=== PATIENT | female | born 1950 | race Caucasian/White ===

== ENCOUNTER 2017-09-28 06:42 | Day surgery (SDC) | payer MEDICARE, OTHER ==
[2017-09-23 16:25] VITALS: BMI 29.2
[~2017-09-28 06:42] MED LIST: LACTATED RINGERS 1,000 ML IV SCH
[2017-09-28] MEDS ORDERED: LACTATED RINGERS 1,000 ML IV ONE (07:04)
[2017-09-28 07:16] VITALS: TEMP 97.6
[2017-09-28] MEDS ORDERED: PROPOFOL 10 MG/ML 20 ML VIAL IV ONE (07:36)
--- NOTE | 2017-09-28 07:59 | P.PCN ---
Date of Procedure: 09/28/17 Procedure(s) Performed: BRIEF HISTORY: Patient is a 66-year-old pleasant white female scheduled for an elective colonoscopy as a part of screening for colorectal neoplasia. PROCEDURE PERFORMED: Colonoscopy. PREOPERATIVE DIAGNOSIS: Screening for colon cancer. IV sedation per Anesthesia. PROCEDURE: After informed consent was obtained, the patient, was brought into the endoscopy unit. IV sedation was administered by Anesthesia under continuous monitoring. Digital rectal examination was normal. Initially the Olympus CF- 160 flexible video colonoscope was then inserted in the rectum, gradually advanced into the cecum without any difficulty. Careful examination was performed as the scope was gradually being withdrawn. Ileocecal valve and the appendiceal orifice were visualized and appeared normal. Prep was excellent. Mucosa of the cecum, ascending colon, transverse colon, descending colon, sigmoid colon, and rectum appeared normal. Retroflexion was performed in the rectum and small internal hemorrhoids were seen. The patient tolerated the procedure well. IMPRESSION: Normal-appearing colon from rectum to cecum with no evidence of colorectal neoplasia. Small internal hemorrhoids. RECOMMENDATIONS: Findings of this examination were discussed with the patient as well as a family. She was advised to have a repeat screening colonoscopy in 10 years.
[2017-09-28 08:29] VITALS: BP 139/72; PULSE 90; RESP 18
== END 2017-09-28 09:22 | disposition home or self-care (01) ==
LOC: ORWHC2ENDO 06:42
PROVIDERS: ATTEND Internal Medicine Gastroenterology
DX: Z12.11 Encounter for screening for malignant neoplasm of colon (principal); K64.8 Other hemorrhoids; I10 Essential (primary) hypertension; E78.5 Hyperlipidemia, unspecified; J44.9 Chronic obstructive pulmonary disease, unspecified; F17.210 Nicotine dependence, cigarettes, uncomplicated; M19.90 Unspecified osteoarthritis, unspecified site; Z79.82 Long term (current) use of aspirin; Z79.899 Other long term (current) drug therapy; I73.9 Peripheral vascular disease, unspecified; Z88.1 Allergy status to other antibiotic agents
CPT/HCPCS: J2704; G0121; 45378

== ENCOUNTER 2019-06-09 11:59 | Emergency (ER) | payer MEDICARE, OTHER ==
[2019-06-09 13:51] LABS: Basophils % (A) 0 %; Eosinophils # (A) 0.1 k/uL (0-0.7); Eosinophils % (A) 1 %; HCT 45.5 % (34.0-46.0); HGB 14.7 gm/dL (11.4-16.0); Lymphocytes # (A) 0.9 k/uL (1.0-4.8); Lymphocytes % (A) 11 %; MCH 32.6 pg (25.0-35.0); MCHC 32.3 g/dL (31.0-37.0); MCV 100.7 fL (80.0-100.0); Macrocytosis Slight; Mean Platelet Volume 9.7; Monocytes # (A) 0.2 k/uL (0-1.0); Monocytes % (A) 3 %; Neutrophils % (A) 84 %; Platelet Count 168 k/uL (150-450); RBC 4.52 m/uL (3.80-5.40); RDW 14.4 % (11.5-15.5); WBC 8.3 k/uL (3.8-10.6)
[2019-06-09 14:04] LABS: ALT 20 U/L (4-34); African American GFR (CKD) >90 (>60 ml/min/1.73 sqM); Albumin 4.8 g/dL (3.5-5.0); Anion Gap 12 mmol/L; Blood Urea Nitrogen 17 mg/dL (7-17); Calcium 9.8 mg/dL (8.4-10.2); Carbon Dioxide 27 mmol/L (22-30); Chloride 101 mmol/L (98-107); Glucose 112 mg/dL (74-99); Non-African American GFR(CKD) >90 (>60 ml/min/1.73 sqM); Sodium 140 mmol/L (137-145); Total Bilirubin 0.7 mg/dL (0.2-1.3); Total Protein 8.4 g/dL (6.3-8.2)
[2019-06-09 14:05] LABS: AST 31 U/L (14-36); Alkaline Phosphatase 77 U/L (38-126); Potassium 4.4 mmol/L (3.5-5.1)
--- NOTE | 2019-06-09 14:16 | CT ---
EXAMINATION TYPE: CT brain wo con DATE OF EXAM: 06/09/2019 COMPARISON: None HISTORY: 68-year-old female elevated BP, vertigo TECHNIQUE: Examination was done in axial plane without intravenous contrast. Coronal and sagittal r econstructions performed. CT DLP: 1017.4 mGycm Automated exposure control for dose reduction was used. FINDINGS: There is no evidence of acute intracranial hemorrhage, acute ischemic changes, mass, mass-effect, or extra-axial fluid collection. There is no effacement of cerebral sulci or basal subarachnoid cister ns. There is no hydrocephalus. There is no midline shift. Swan-white matter distinction is preserv ed. Air-fluid level within the left maxillary sinus, probably fluid in the right sphenoid sinus. Mastoid air cells are well pneumatized. Atherosclerotic calcifications within the carotid siphons. Mild generalized supratentorial volume los s. IMPRESSION: No acute intracranial abnormality seen. Correlate for acute left maxillary and acute right sphenoid sinusitis.
[2019-06-09] MEDS ORDERED: amLODIPine 5 MG TAB PO STA (14:53)
--- NOTE | 2019-06-09 14:58 | ED ---
General Adult HPI - General Chief complaint: Recheck/Abnormal Lab/Rx Stated complaint: high BP Time Seen by Provider: 06/09/19 12:30 Source: patient Mode of arrival: ambulatory Limitations: no limitations - History of Present Illness Initial comments: The patient is a 68-year-old female past history of hypertension and abdominal aortic aneurysm with repair who presents to the emergency department with reported hypertension. She states that it has been going on for the past 6 months. She will be seen in her cardiology office and was told that her blood pressure runs high. It is normally around 160 systolic. The patient states over the past few days she has felt foggy with a slight headache. Also admits to feeling slightly tremulous. Because of her symptoms she has been taking her blood pressure more frequently. She has noted that it is been extremely high, 190 systolic. She denies any visual changes or unilateral numbness or weakness. No chest pain or shortness of breath. No ripping or tearing sensation to her back. She denies any weakness in her extremities. She does take atenolol 25 mg once daily. She was placed on this after her abdominal aortic aneurysm repair. States this medication has not been adjusted in several years. Denies any additional symptoms to include nausea, vomiting, abdominal or back pain. There are no other alleviating, precipitating or modifying factors - Related Data Home Medications Medication Instructions Recorded Confirmed Atenolol 25 mg PO HS 02/28/16 09/28/17 Atorvastatin [Lipitor] 40 mg PO HS 02/28/16 09/28/17 Acetaminophen [Tylenol Extra 1,000 mg PO DAILY PRN 09/23/17 09/28/17 Strength] Aspirin 325 mg PO HS 09/23/17 09/28/17 Cholecalciferol [Vitamin D3] 1,000 unit PO HS 09/23/17 09/28/17 Clobetasol Propionate [Temovate 1 applic TOPICAL DAILY PRN 09/23/17 09/28/17 0.05% Cream] Fluocinonide [Lidex .05%] 1 applic TOPICAL DAILY PRN 09/23/17 09/28/17 Folic Acid 1 mg PO HS 09/23/17 09/28/17 L.acidoph,Paracasei, B.lactis 1 each PO HS 09/23/17 09/28/17 [Probiotic] Latanoprost Ophth [Xalatan 0.005%] 1 drops RIGHT EYE HS 09/23/17 09/28/17 Methotrexate Sodium [Methotrexate] 12.5 mg PO TU 09/23/17 09/28/17 Mometasone Furoate [Asmanex Hfa] 1 puff INHALATION HS 09/23/17 09/28/17 Previous Rx's Medication Instructions Recorded amLODIPine [Norvasc] 5 mg PO DAILY #14 tab 06/09/19 Allergies Allergy/AdvReac Type Severity Reaction Status Date / Time erythromycin base Allergy Swelling Verified 06/09/19 12:35 of Tongue & throat. Review of Systems ROS Statement: Those systems with pertinent positive or pertinent negative responses have been documented in the HPI. ROS Other: All systems not noted in ROS Statement are negative. Past Medical History Past Medical History: COPD, Hyperlipidemia, Hypertension, Rheumatoid Arthritis (RA), Skin Disorder Additional Past Medical History / Comment(s): PSORIASIS, STATES ? BEGINNING OF LUPUS, MUSCLE SPASMS, CHRONIC CONSTIPATION., STATES BLOOD TYPE IS O NEGATIVE WITH AN ANTIBODY. History of Any Multi-Drug Resistant Organisms: None Reported Past Surgical History: Cholecystectomy Additional Past Surgical History / Comment(s): AAA repair, D & C, CATARACTS Past Anesthesia/Blood Transfusion Reactions: No Reported Reaction, Motion Sickness Past Psychological History: No Psychological Hx Reported Smoking Status: Current every day smoker Past Alcohol Use History: None Reported Past Drug Use History: None Reported - Past Family History Mother Family Medical History: No Reported History General Exam Limitations: no limitations General appearance: alert, in no apparent distress Head exam: Present: atraumatic, normocephalic, normal inspection Eye exam: Present: normal appearance, PERRL, EOMI. Absent: scleral icterus, conjunctival injection, periorbital swelling ENT exam: Present: normal exam, mucous membranes moist Neck exam: Present: normal inspection. Absent: tenderness, meningismus, lymphadenopathy Respiratory exam: Present: normal lung sounds bilaterally. Absent: respiratory distress, wheezes, rales, rhonchi, stridor Cardiovascular Exam: Present: regular rate, normal rhythm, normal heart sounds. Absent: systolic murmur, diastolic murmur, rubs, gallop, clicks GI/Abdominal exam: Present: soft, normal bowel sounds. Absent: distended, tenderness, guarding, rebound, rigid, bruit, pulsatile mass Extremities exam: Present: normal inspection, full ROM, normal capillary refill. Absent: tenderness, pedal edema, joint swelling, calf tenderness Back exam: Present: normal inspection Neurological exam: Present: alert, oriented X3, CN II-XII intact Psychiatric exam: Present: normal affect, normal mood Skin exam: Present: warm, dry, intact, normal color. Absent: rash Course Vital Signs 06/09/19 06/09/19 06/09/19 12:33 13:07 14:00 Temperature 97.8 F Pulse Rate 78 70 68 Respiratory 18 35 H 15 Rate Blood Pressure 198/100 181/83 O2 Sat by Pulse 98 Oximetry 06/09/19 06/09/19 15:00 15:10 Temperature 98.6 F 98.7 F Pulse Rate 66 Respiratory 20 Rate Blood Pressure 155/77 O2 Sat by Pulse Oximetry EKG Findings - EKG Comments: EKG Findings:: EKG demonstrates normal sinus rhythm with a ventricular rate of 75. FL interval 152. QRS 78. QTC of 433. No acute ST segment elevations or depressions concerning for ischemic changes Medical Decision Making - Medical Decision Making Upon arrival the patient was placed into room 10. A thorough history and physical exam was performed. Patient is hooked to continuous pulse ox and cardiac monitoring. Peripheral IV is established. 12-lead EKG is performed. I did recommend laboratory studies and a CT the patient's brain because of her reported symptoms. CBC and CMP are unremarkable. Troponin is negative. TSH 3.3. CT of the patient's brain demonstrates no acute intracranial abnormality. I discussed the results with the patient. Her blood pressure is currently 155/77. She has had a significant improvement without medication administration . The patient reports to patient high blood pressures at home and therefore we will add on amlodipine to the patient's regimen. She is to take 5 mg once daily the afternoon, from her atenolol. She will be given a tablet to go home. I did call in a prescription to the pharmacy. She is to follow up with her primary care doctor. She has appointment on . She is instructed to keep a blood pressure log. Return to the emergency room for any new or worsening symptoms. Patient was in agreement with the treatment plan and discharged home in stable condition - Lab Data Result diagrams: 06/09/19 13:21 06/09/19 13:21 Lab Results 06/09/19 06/09/19 06/09/19 Range/Units 13:21 13:21 13:21 WBC 8.3 (3.8-10.6) k/uL RBC 4.52 (3.80-5.40) m/uL Hgb 14.7 (11.4-16.0) gm/dL Hct 45.5 (34.0-46.0) % MCV 100.7 H (80.0-100.0) fL MCH 32.6 (25.0-35.0) pg MCHC 32.3 (31.0-37.0) g/dL RDW 14.4 (11.5-15.5) % Plt Count 168 (150-450) k/uL Neutrophils % 84 % Lymphocytes % 11 % Monocytes % 3 % Eosinophils % 1 % Basophils % 0 % Neutrophils # 7.0 (1.3-7.7) k/uL Lymphocytes # 0.9 L (1.0-4.8) k/uL Monocytes # 0.2 (0-1.0) k/uL Eosinophils # 0.1 (0-0.7) k/uL Basophils # 0.0 (0-0.2) k/uL Macrocytosis Slight Sodium 140 (137-145) mmol/L Potassium 4.4 (3.5-5.1) mmol/L Chloride 101 (98-107) mmol/L Carbon Dioxide 27 (22-30) mmol/L Anion Gap 12 mmol/L BUN 17 (7-17) mg/dL Creatinine 0.55 (0.52-1.04) mg/dL Est GFR (CKD-EPI)AfAm >90 (>60 ml/min/1.73 sqM) Est GFR (CKD-EPI)NonAf >90 (>60 ml/min/1.73 sqM) Glucose 112 H (74-99) mg/dL Calcium 9.8 (8.4-10.2) mg/dL Total Bilirubin 0.7 (0.2-1.3) mg/dL AST 31 (14-36) U/L ALT 20 (4-34) U/L Alkaline Phosphatase 77 (38-126) U/L Troponin I <0.012 (0.000-0.034) ng/mL Total Protein 8.4 H (6.3-8.2) g/dL Albumin 4.8 (3.5-5.0) g/dL TSH 3.370 (0.465-4.680) mIU/L Disposition Clinical Impression: High blood pressure, Pre-syncope Disposition: HOME SELF-CARE Condition: Stable Instructions (If sedation given, give patient instructions): Hypertension (ED) Additional Instructions: Please keep a log of your blood pressures. Follow-up with her primary care doctor. Return to the emergency room for any new or worsening symptoms Prescriptions: amLODIPine [Norvasc] 5 mg PO DAILY #14 tab Is patient prescribed a controlled substance at d/c from ED?: No Referrals: Regan Tapia MD [Primary Care Provider] - 1-2 days Time of Disposition: 14:57
[2019-06-09 15:30] VITALS: BP 155/77; PULSE 66; RESP 20
[2019-06-09 15:40] VITALS: TEMP 98.7
== END 2019-06-09 15:00 | disposition home or self-care (01) ==
LOC: EC 11:59
DX: I10 Essential (primary) hypertension (principal); R55 Syncope and collapse; E78.5 Hyperlipidemia, unspecified; M06.9 Rheumatoid arthritis, unspecified; F17.200 Nicotine dependence, unspecified, uncomplicated; Z79.82 Long term (current) use of aspirin; Z79.899 Other long term (current) drug therapy; Z88.1 Allergy status to other antibiotic agents
CPT/HCPCS: 36415; 70450; 80053; 84443; 84484; 85025; 93005; 99284